=== PATIENT | female | born 1985 | race Caucasian/White ===

== ENCOUNTER 2019-01-20 20:55 | Emergency (ER) | payer OTHER ==
[2019-01-20] MEDS ORDERED: FAMOTIDINE 20 MG TAB PO ONE (21:13)
[2019-01-20] MEDS ORDERED: predniSONE 20 MG TAB PO ONE (21:13)
--- NOTE | 2019-01-20 21:16 | EDPHY ---
H & P Stated Complaint: allergic reaction hives Time Seen by Provider: 01/20/19 21:08 HPI/ROS: CHIEF COMPLAINT: Hives HISTORY OF PRESENT ILLNESS: Patient is a 33-year-old female who traveled to [place] today from [place]. When she woke up this morning in [place] she noticed some hives on her buttocks. She took a picture because she could not see what it was. Throughout the day it is gradually progressed and then about an hour ago became extremely itchy and more diffuse. It seems to follow her bra lines as well as her upper neck and chest. She states that her scalp is itchy. She has a history of asthma but does not have any shortness of breath or wheezing. No swelling of her tongue lips or airway. No GI symptoms. No fevers. No recent illness. She took Benadryl this morning and again about 30 min ago without significant improvement. Severity: Moderate Modifying factors: None REVIEW OF SYSTEMS: Constitutional: denies: chills, fever, recent illness, recent injury EENTM: denies: blurred vision, double vision, nose congestion Respiratory: denies: cough, shortness of breath Cardiac: denies: chest pain, irregular heart rate, lightheadedness, palpitations Gastrointestinal/Abdominal: denies: abdominal pain, diarrhea, nausea, vomiting, blood streaked stools Genitourinary: denies: dysuria, frequency, hematuria, pain Musculoskeletal: denies: joint pain, muscle pain Skin: See HPI Neurological: denies: headache, numbness, paresthesia, tingling, dizziness, weakness Hematologic/Lymphatic: denies: blood clots, easy bleeding, easy bruising Immunologic/allergic: denies: HIV/AIDS, transplant 10 systems reviewed and negative except as noted EXAM: GENERAL: Well-appearing, well-nourished and in no acute distress. HEAD: Atraumatic, normocephalic. EYES: Pupils equal round and reactive to light, extraocular movements intact, sclera anicteric, conjunctiva are normal. ENT: TMs normal, nares patent, oropharynx clear without exudates. Moist mucous membranes. No mucosal involvement. NECK: Normal range of motion, supple without lymphadenopathy or JVD. LUNGS: Breath sounds clear to auscultation bilaterally and equal. No wheezes rales or rhonchi. HEART: Regular rate and rhythm without murmurs, rubs or gallops. ABDOMEN: Soft, nontender, normoactive bowel sounds. No guarding, no rebound. No masses appreciated. BACK: No CVA tenderness, no spinal tenderness, step-offs or deformities EXTREMITIES: Normal range of motion, no pitting or edema. No clubbing or cyanosis. NEUROLOGICAL: Cranial nerves II through XII grossly intact. Normal speech, normal gait. 5/5 strength, normal movement in all extremities, normal sensation , normal reflexes PSYCH: Normal mood, normal affect. SKIN: Mild diffuse urticaria on upper neck and upper back and right gluteus and leg. Seems to follow the bra line on her back. Source: Patient Exam Limitations: No limitations - Personal History LMP (Females 10-55): 15-21 Days Ago Current Tetanus/Diphtheria Vaccine: Yes Current Tetanus Diphtheria and Acellular Pertussis (TDAP): Yes - Medical/Surgical History Hx Asthma: Yes Hx Chronic Respiratory Disease: No Hx Diabetes: No Hx Cardiac Disease: No Hx Renal Disease: No Hx Cirrhosis: No Hx Alcoholism: No Hx HIV/AIDS: No Hx Splenectomy or Spleen Trauma: No - Family History Significant Family History: No pertinent family hx - Social History Smoking Status: Never smoked Alcohol Use: None Constitutional: Initial Vital Signs Temperature (C) 36.5 C 01/20/19 20:58 Heart Rate 108 H 01/20/19 20:58 Respiratory Rate 18 01/20/19 20:58 Blood Pressure 102/77 01/20/19 20:58 O2 Sat (%) 97 01/20/19 20:58 O2 Delivery Mode Room Air Allergies/Adverse Reactions: No Known Allergies Allergy (Unverified 01/20/19 20:56) Home Medications: Medication Instructions Recorded Famotidine [Pepcid] 40 mg PO HS PRN #10 tablet 01/20/19 Prozac 20 MG (*) 01/20/19 diphenhydrAMINE [Benadryl 50 MG 50 mg PO Q4-6PRN PRN #30 cap 01/20/19 (OTC)] predniSONE 60 mg PO DAILY #12 tab 01/20/19 Medical Decision Making ED Course/Re-evaluation: 10:30 p.m. the patient's hives have resolved. She is feeling much better. She is eager to go home. Will prescribe prednisone and encouraged her to continue Benadryl and Pepcid as needed. Patient is happy with this plan. I encouraged her to follow up with an cocoa roaster when she gets back home. We discussed indications for returning. Differential Diagnosis: Partial list of the Differential diagnosis considered include but were not limited to; urticaria, anaphylaxis and although unlikely based on the history and physical exam, I also considered Seng Gutierrez's, erythema migrans. I discussed these differential diagnoses and the plan with the patient as well as the usual and expected course. The patient understands that the diagnosis is provisional and that in medicine we are not always correct and that further workup is often warranted. Usual and customary warnings were given. All of the patient's questions were answered. The patient was instructed to return to the emergency department should the symptoms at all worsen or return, otherwise to followup with the physician as we discussed. - Data Points Medications Given: Discontinued Medications Famotidine (Pepcid) 40 mg PO EDNOW ONE Stop: 01/20/19 21:14 Last Admin: 01/20/19 21:16 Dose: 40 mg Prednisone (Prednisone) 60 mg PO EDNOW ONE Stop: 01/20/19 21:14 Last Admin: 01/20/19 21:16 Dose: 60 mg Departure - Departure Disposition: Home, Routine, Self-Care Clinical Impression: Urticaria Condition: Fair Instructions: Urticaria (ED) Referrals: CARMEN SUAREZ [Other] - As per Instructions Prescriptions: diphenhydrAMINE [Benadryl 50 MG (OTC)] 50 mg PO Q4-6PRN PRN #30 cap PRN Reason: Itching Famotidine [Pepcid] 40 mg PO HS PRN #10 tablet PRN Reason: Rash predniSONE 60 mg PO DAILY #12 tab
[2019-01-20 22:37] VITALS: BP 120/68
== END 2019-01-20 22:36 | disposition home or self-care (01) ==
DX: L50.9 Urticaria, unspecified (principal); T78.40XA Allergy, unspecified, initial encounter
CPT/HCPCS: J7512